=== PATIENT | female | born 1970 | race African-American/Black ===

== ENCOUNTER 2023-11-22 18:56 | Emergency (ER) | payer MEDICAID ==
[~2023-11-22] VITALS: Ht 160 cm; Wt 83.9 kg
[2023-11-22 19:11] VITALS: BP 118/94; PULSE 83; RESP 19; TEMP 98; O2SAT 99
[2023-11-22] MEDS ORDERED: METH4TAB1 PO (21:04)
[2023-11-22] MEDS ORDERED: CICL120S2 TP (21:04)
[2023-11-22] MEDS ORDERED: KEN.1O TP (21:04)
[2023-11-22 21:09] VITALS: O2SAT 99
== END 2023-11-22 21:09 | disposition home or self-care (01) ==
LOC: MED 18:56
DX: L56.8 Other specified acute skin changes due to ultraviolet radiation (principal); E11.9 Type 2 diabetes mellitus without complications; M32.9 Systemic lupus erythematosus, unspecified; M06.9 Rheumatoid arthritis, unspecified; E03.9 Hypothyroidism, unspecified; Z79.2 Long term (current) use of antibiotics; Z79.899 Other long term (current) drug therapy; Z88.0 Allergy status to penicillin
CPT/HCPCS: 99283